=== PATIENT | female | born 1960 | race Caucasian/White ===

== ENCOUNTER 2021-03-13 05:19 | Inpatient (IN) | payer BC ==
[2021-03-12 11:38] LABS: ALBUMIN 3.1 g/dL (3.4-5.0); ANION GAP 5 mmol/L (5-15); CHLORIDE 104 mmol/L (98-107)
[2021-03-12 11:39] LABS: BASOPHILS % (AUTO) 1 % (0-1); EOSINOPHILS % (AUTO) 1 % (1-7); LYMPHOCYTES % (AUTO) 33 % (22-44); MEAN CORPUSCULAR HEMOGLOBIN 19.7 pg (27.0-34.8); MEAN CORPUSCULAR HGB CONC 30.2 g/dL (32.4-35.8); MEAN PLATELET VOLUME 8.9 fL (7.4-10.4); MONOCYTES % (AUTO) 9 % (2-9); NEUTROPHILS % (AUTO) 56 % (42-75); PLATELET COUNT 193 x10^3/uL (130-400); RED BLOOD COUNT 5.42 x10^6/uL (3.82-5.3)
[2021-03-12 11:42] LABS: ALANINE AMINOTRANSFERASE 37 U/L (12-78); ALKALINE PHOSPHATASE 117 U/L (45-117); BILIRUBIN,TOTAL 0.4 mg/dL (0.2-1.0); CREATININE 0.79 mg/dL (0.55-1.02); TOTAL PROTEIN 6.4 g/dL (6.4-8.2)
[2021-03-12 12:06] LABS: ANISOCYTOSIS 2+; HYPOCHROMIA 2+; MICROCYTOSIS 2+
[2021-03-12 12:07] LABS: <PLATELET ESTIMATE> ADEQUATE; <PLT MORPHOLOGY> NORMAL PLT MORPH; OVALOCYTES 1+
[~2021-03-13] VITALS: Ht 160 cm; Wt 78.6 kg
[~2021-03-13 05:19] MED LIST: APIX5TAB PO; ATOR80TA PO; CLOP75TA52 PO; LOSA100T14 PO; MAGN400T36 PO; METF500T17 PO; METO-99 PO; cilostazol PO; levothyroxine PO; lovenox SC
[2021-03-13] MEDS ORDERED: LACTATED RINGERS 1,000 ML IV SCH (06:30)
[2021-03-13] MEDS ORDERED: CHLORHEXIDINE 15 ML UDC PO ONE (06:30)
[2021-03-13] MEDS ORDERED: BUPIVACAINE/PF 0.5% ONE (06:45)
[2021-03-13] MEDS ORDERED: EPINEPHRINE 1 MG/ML, 1ML ONE (06:46)
[2021-03-13] MEDS ORDERED: PROTAMINE SULFATE 10 MG/ML, 5ML ONE (06:46)
[2021-03-13] MEDS ORDERED: HEPARIN 1,000 UNITS/ML, 10ML ONE (06:46)
[2021-03-13] MEDS ORDERED: HEPARIN 5,000 UNITS/ML, 1ML ONE (06:46)
[2021-03-13] MEDS ORDERED: THROMBIN 20,000 UNIT VIAL TP ONE (06:46)
[2021-03-13] MEDS ORDERED: ASPIRIN 81 MG TABLET EC ONE (07:08)
[2021-03-13] MEDS ORDERED: MIDAZOLAM 1 MG/ML, 2ML ONE (07:12)
[2021-03-13] MEDS ORDERED: FENTANYL PF 250 MCG/5ML ONE (07:15)
[2021-03-13] MEDS ORDERED: ASPIRIN 81 MG TABLET EC PO ONE (07:30)
[2021-03-13] MEDS ORDERED: FENTANYL PF 100 MCG/2ML IV PRN (08:30)
[2021-03-13] MEDS ORDERED: ALBUTEROL SULFATE 2.5 MG/3 ML NPPB PRN (08:30)
[2021-03-13] MEDS ORDERED: MEPERIDINE/PF 25MG/0.5ML IVPush PRN (08:30)
[2021-03-13] MEDS ORDERED: OXYcodone 5 MG/5 ML ORAL.SOL UDC PO PRN (08:30)
[2021-03-13] MEDS ORDERED: HYDROmorphone 1 MG/ML, 1ML INJ IVPush PRN (08:30)
[2021-03-13] MEDS ORDERED: LORazepam 2 MG/ML, 1ML IVPush PRN (08:30)
[2021-03-13] MEDS ORDERED: PROMETHAZINE 25 MG/ML, 1ML IVPush PRN (08:30)
[2021-03-13] MEDS ORDERED: ACETAMINOPHEN 325 MG TABLET PO PRN (08:30)
[2021-03-13] MEDS ORDERED: LABETALOL 5MG/ML, 20ML IV PRN (08:30)
[2021-03-13] MEDS ORDERED: LIDOCAINE-MPF 2% ,5ML ONE ×2 (10:09)
[2021-03-13] MEDS ORDERED: ONDANSETRON 2MG/ML, 2ML ONE (10:15)
[2021-03-13] MEDS ORDERED: GLYCOPYRROLATE 0.2MG/1ML, 5ML ONE (10:15)
[2021-03-13] MEDS ORDERED: ROCURONIUM 10MG/ML,5ML ONE (10:15)
[2021-03-13] MEDS ORDERED: DEXAMETHASONE 4 MG/ML, 1ML ONE (10:15)
[2021-03-13] MEDS ORDERED: CEFAZOLIN 1,000 MG ONE (10:15)
[2021-03-13] MEDS ORDERED: NEOSTIGMINE 1 MG/ML, 10ML ONE (10:15)
[2021-03-13] MEDS ORDERED: PROPOFOL 10 MG/ML, 20ML ONE (10:15)
[2021-03-13 18:00] VITALS: BP 101/68
[2021-03-13] MEDS ORDERED: morphine SULFATE 10 MG/ML, 1ML IV PRN (18:30)
[2021-03-13] MEDS ORDERED: ONDANSETRON 2MG/ML, 2ML IV PRN (18:30)
[2021-03-13] MEDS: SODIUM CHLORIDE FLUSH 10ML SYR IVF SCH (21:00)
[2021-03-13] MEDS: LACTATED RINGERS 1,000 ML IV SCH (21:59)
[2021-03-13] MEDS: ATORVASTATIN 80 MG TABLET PO SCH (21:59)
[2021-03-13] MEDS: HYDROcodone/APAP 5/325 TABLET PO PRN (22:00)
[2021-03-14] VITALS (8 sets, daily range): BP systolic 94–119; BP diastolic 55–74
[2021-03-14] MEDS: INSULIN REGULAR, HUMAN 100 UNITS/ML, 3ML MEDIUM DOSE SS SQ-INSULIN SCH ×4 (00:08→15:57)
[2021-03-14] MEDS: CILOSTAZOL 100 MG TABLET PO SCH ×2 (00:34→20:05)
[2021-03-14] MEDS: LACTATED RINGERS 1,000 ML IV SCH ×2 (04:30→14:38)
[2021-03-14] MEDS: METOPROLOL TARTRATE 100 MG TAB PO SCH ×2 (06:00→18:00)
[2021-03-14] MEDS: HYDROcodone/APAP 5/325 TABLET PO PRN ×3 (06:53→20:05)
[2021-03-14] MEDS: HEPARIN 5,000 UNITS/ML, 1ML SQ SCH ×2 (06:54→13:38)
[2021-03-14] MEDS: LOSARTAN 100 MG TAB PO SCH ×2 (09:00→10:08)
[2021-03-14] MEDS: SODIUM CHLORIDE FLUSH 10ML SYR IVF SCH ×3 (09:00→20:05)
[2021-03-14] MEDS: MAGNESIUM OXIDE 400 MG TABLET PO SCH (10:08)
[2021-03-14] MEDS: CLOPIDOGREL 75 MG TABLET PO SCH (10:08)
[2021-03-14] MEDS: ATORVASTATIN 80 MG TABLET PO SCH (20:04)
[2021-03-14] MEDS ORDERED: LEVOTHYROXINE 137 MCG TABLET PO SCH (21:00)
[2021-03-15] MEDS: LACTATED RINGERS 1,000 ML IV SCH ×2 (00:30→10:30)
[2021-03-15] MEDS: HYDROcodone/APAP 5/325 TABLET PO PRN ×2 (00:34→07:26)
[2021-03-15] MEDS: HEPARIN 5,000 UNITS/ML, 1ML SQ SCH ×2 (00:34→07:29)
[2021-03-15] MEDS: INSULIN REGULAR, HUMAN 100 UNITS/ML, 3ML MEDIUM DOSE SS SQ-INSULIN SCH ×3 (00:45→11:00)
[2021-03-15 02:33] VITALS: BP 95/61
[2021-03-15 06:39] VITALS: BP 117/73
[2021-03-15] MEDS: METOPROLOL TARTRATE 100 MG TAB PO SCH (07:25)
[2021-03-15] MEDS: MAGNESIUM OXIDE 400 MG TABLET PO SCH (07:29)
[2021-03-15] MEDS: LOSARTAN 100 MG TAB PO SCH (07:29)
[2021-03-15] MEDS: CLOPIDOGREL 75 MG TABLET PO SCH (07:30)
[2021-03-15] MEDS: SODIUM CHLORIDE FLUSH 10ML SYR IVF SCH (07:30)
[2021-03-15] MEDS ORDERED: LEVOTHYROXINE 137 MCG TABLET PO SCH ×2 (09:00→21:00)
[2021-03-15 13:02] VITALS: BP 94/55
== END 2021-03-15 14:05 | disposition home or self-care (01) | DRG 254 ==
LOC: ORIP 05:19 → 4NE 17:54
PROVIDERS: ADMIT Surgery; ATTEND Surgery
PROC: 041K0JL Bypass Right Femoral Artery to Popliteal Artery with Synthetic Substitute, Open Approach (ICD-10-PCS; 2021-03-13)
PROC: 04CK0ZZ Extirpation of Matter from Right Femoral Artery, Open Approach (ICD-10-PCS; principal; 2021-03-13 07:30)
DX: E11.51 Type 2 diabetes mellitus with diabetic peripheral angiopathy without gangrene (principal); I70.221 Atherosclerosis of native arteries of extremities with rest pain, right leg; I10 Essential (primary) hypertension; Z88.6 Allergy status to analgesic agent; Z88.1 Allergy status to other antibiotic agents; Z88.8 Allergy status to other drugs, medicaments and biological substances
CPT/HCPCS: 36415; J3490; S0020; 71046; 80053; 82962; 85025; 86850; 86900; 88300; 93005; G0378; J0171; J0690; J1100; J1644; J2250; J2405; J2704; J2710; J2720; J3010; C1768; J7120